=== PATIENT | female | born 1945 | race Caucasian/White ===

== ENCOUNTER 2018-11-01 06:42 | Day surgery (SDC) | payer MEDICARE, OTHER ==
[~2018-11-01 06:42] MED LIST: CEFAZOLIN 2 GM/50 ML (PMX) 50 ML IVPB
[2018-11-01] MEDS ORDERED: SEVOFLURANE 15 MIN (07:00)
[2018-11-01 07:33] LABS: ADD MAN DIFF? NO
[2018-11-01 07:39] LABS: WHITE BLOOD COUNT 7.4 10^3/ul (4.8-10.8)
[2018-11-01 07:39] LABS: BASOPHIL # 0.1 10^3/ul (0.0-0.1); BASOPHILS % 0.8 % (0.0-2.0); EOSINOPHILS # 0.2 10^3/ul (0.0-0.5); EOSINOPHILS % 2.3 % (0.0-7.0); HEMATOCRIT 41.8 % (37.0-47.0); LYMPHOCYTES # 2.2 10^3/ul (0.8-2.9); LYMPHOCYTES % 29.9 % (15.0-51.0); MEAN CORPUSCULAR HEMOGLOBIN 29.9 pg (29.0-33.0); MEAN CORPUSCULAR HGB CONC 33.5 g/dl (32.0-37.0); MEAN CORPUSCULAR VOLUME 89.1 fl (82.0-101.0); MEAN PLATELET VOLUME 11.6 fl (7.4-10.4); MONOCYTE # 0.6 10^3/ul (0.3-0.9); NEUTROPHIL # 4.3 10^3/ul (1.6-7.5); NEUTROPHILS % 58.6 % (39.0-77.0); PLATELET COUNT 176 10^3/UL (140-415); RED BLOOD COUNT 4.69 10^6/ul (4.20-5.40); RED CELL DISTRIBUTION WIDTH 12.6 % (11.5-14.5)
[2018-11-01 07:41] LABS: POSITIVE DIFF @See below
[2018-11-01] MEDS: LACTATED RINGER'S 1,000 ML IV (08:04)
[2018-11-01 08:13] LABS: INR 0.91; PROTIME 12.4 Sec (11.9-14.9)
[2018-11-01 08:14] LABS: ALANINE AMINOTRANSFERASE 27 IU/L (13-69); ALBUMIN 4.1 g/dl (3.3-4.9); ALBUMIN/GLOBULIN RATIO 1.41; ALKALINE PHOSPHATASE 79 IU/L (42-121); ANION GAP 7 (5-13); ASPARTATE AMINO TRANSFERASE 27 IU/L (15-46); BILIRUBIN,INDIRECT 0.5 mg/dl (0-1.1); BILIRUBIN,TOTAL 0.5 mg/dl (0.2-1.3); CALCIUM 9.6 mg/dl (8.4-10.2); CARBON DIOXIDE 31 mmol/L (21-31); CHLORIDE 100 mmol/L (97-110); CREATININE 0.99 mg/dl (0.44-1.00); GLUCOSE 160 mg/dl (70-220); PARTIAL THROMBOPLASTIN TIME 33.4 Sec (23.0-35.0); POTASSIUM 4.6 mmol/L (3.5-5.1)
[2018-11-01 08:18] LABS: BLOOD UREA NITROGEN 25 mg/dl (7-20)
[2018-11-01 08:19] LABS: SODIUM 138 mmol/L (135-144)
[2018-11-01] MEDS ORDERED: hydrALAzine 20 MG INJ IV (09:00)
[2018-11-01] MEDS ORDERED: HYDROmorphONE 1 MG/5 ML IV SYRINGE IV ×2 (09:00)
[2018-11-01] MEDS ORDERED: ONDANSETRON 4 MG INJ IV (09:00)
[2018-11-01] MEDS ORDERED: LABETALOL HCL 20MG INJ IV (09:00)
[2018-11-01] MEDS ORDERED: LIDOCAINE 2% (SDV) 5 ML INJ (10:49)
[2018-11-01] MEDS ORDERED: ETOMIDATE 20 MG INJ (10:49)
[2018-11-01] MEDS ORDERED: PROPOFOL 20 ML (10:49)
[2018-11-01] MEDS ORDERED: CEFAZOLIN 1 GM INJ (10:55)
[2018-11-01] MEDS ORDERED: ONDANSETRON 4 MG INJ (10:55)
[2018-11-01] MEDS ORDERED: FENTAnyl 50 MCG/ML VIAL (10:56)
[2018-11-01] MEDS: BUPIVACAINE 0.5%/EPI (SDV) 30 ML INJ (12:01)
[2018-11-01] MEDS ORDERED: IBUPROFEN 600 MG TAB PO (12:30)
[2018-11-01] MEDS ORDERED: morphine 2 MG INJ IV (12:30)
[2018-11-01] MEDS: HYDROCODONE/APAP (5/325) TAB PO (13:17)
== END 2018-11-01 14:09 | disposition home or self-care (01) ==
LOC: SDS 06:42
DX: D17.21 Benign lipomatous neoplasm of skin and subcutaneous tissue of right arm (principal); I10 Essential (primary) hypertension; E11.9 Type 2 diabetes mellitus without complications; Z79.4 Long term (current) use of insulin
CPT/HCPCS: 24073; 80053; 82962; 85025; 85610; 85730; 88307; 93005